=== PATIENT | female | born 1935 | race Caucasian/White ===

== ENCOUNTER 2019-03-09 11:07 | Observation (INO) | payer MEDICARE, MEDICAID ==
[~2019-03-09] VITALS: Ht 162.6 cm; Wt 83.6 kg
[2019-03-09 11:44] LABS: BASOPHILS # (AUTO) 0.1 X10'3 (0-0.2); BASOPHILS % (AUTO) 0.5 % (0-1); EOSINOPHILS # (AUTO) 0.3 X10'3 (0-0.9); EOSINOPHILS % (AUTO) 3.1 % (0-6); HEMATOCRIT 33.7 % (35.0-45.0); HEMOGLOBIN 11.5 g/dl (12.0-16.0); LYMPHOCYTES # (AUTO) 1.4 X10'3 (1.1-4.8); LYMPHOCYTES % (AUTO) 14.4 % (21-51); MEAN CORPUSCULAR HEMOGLOBIN 33.5 PG (27.0-31.0); MEAN CORPUSCULAR HGB CONC 34.1 g/dL (33.0-36.5); MEAN CORPUSCULAR VOLUME 98.3 FL (78-98); MONOCYTES # (AUTO) 0.6 X10'3 (0-0.9); MONOCYTES % (AUTO) 6.5 % (2-12); NEUTROPHILS # (AUTO) 7.3 X10'3 (1.8-7.7); NEUTROPHILS % (AUTO) 75.5 % (42-75); PLATELET COUNT 225 X10'3 (140-440); RED BLOOD COUNT 3.43 X10'6 (4.20-5.60); RED CELL DISTRIBUTION WIDTH 13.6 % (11.5-14.5); WHITE BLOOD COUNT 9.7 X10'3 (4.5-11.0)
[2019-03-09 12:03] LABS: PARTIAL THROMBOPLASTIN TIME 25 SECONDS (22-32)
[2019-03-09 12:08] LABS: ALANINE AMINOTRANSFERASE 24 U/L (12-78); ALBUMIN 3.1 G/DL (3.4-5.0); ALKALINE PHOSPHATASE 68 IU/L (46-116); ANION GAP 11 (8-16); ASPARTATE AMINO TRANSFERASE 11 U/L (10-37); BILIRUBIN,TOTAL 0.4 MG/DL (0.1-1.0); BLOOD UREA NITROGEN 29 MG/DL (7-18); BUN/CREATININE RATIO 20.1 (6.6-38.0); CALCIUM 8.7 MG/DL (8.5-10.1); CHLORIDE 105 MMOL/L (99-107); CREATININE 1.44 MG/DL (0.40-0.90); GLUCOSE 255 MG/DL (70-104); POTASSIUM 4.6 MMOL/L (3.5-5.1); SODIUM 142 MMOL/L (135-145); TOTAL CARBON DIOXIDE 25.8 MMOL/L (24-32); TOTAL PROTEIN 6.2 G/DL (6.4-8.2); eGFR 35 ML/MIN
--- NOTE | 2019-03-09 12:30 | NUR ---
assumed care of pt from Alfred SOTO, pt is resting quietly on family darryn at bedside
[2019-03-09] MEDS ORDERED: aspirin 81mg tab.chew PO ONE (13:20)
[2019-03-09] MEDS ORDERED: enoxaparin 100mg/ml syringe SUBCUT ONE (13:20)
[2019-03-09] MEDS ORDERED: nitroGLYCERIN 0.4mg/hour patch TD ONE (13:20)
[2019-03-09] MEDS ORDERED: ZOLP10TA PO (13:27)
[2019-03-09] MEDS ORDERED: ESCI20TA PO (13:27)
--- NOTE | 2019-03-09 13:35 | NUR ---
pt c/o rt sided chest pain 08/30, nonradiating, +nausea, +SOB (pt is on 313/12), family at bedside
--- NOTE | 2019-03-09 13:48 | NUR ---
gave pt ice water, luann well, no n/v
[2019-03-09] MEDS ORDERED: normal saline 1000ml 1,000 ML IV SCH (13:51)
[2019-03-09] MEDS ORDERED: ondansetron/PF 4mg/2ml inj IV ONE (13:55)
[2019-03-09] MEDS ORDERED: magnesium Cl slow-release 64mg tablet PO PRN (13:55)
[2019-03-09] MEDS ORDERED: ondansetron/PF 4mg/2ml inj IV PRN (13:55)
[2019-03-09] MEDS ORDERED: magnesium 2GM in 50ml NS 50 ML IV PRN (13:55)
[2019-03-09] MEDS ORDERED: acetaminophen 325mg tablet PO PRN (13:55)
[2019-03-09] MEDS ORDERED: potassium CL 10mEq/100ml bag 100 ML IV PRN ×2 (13:55)
[2019-03-09] MEDS ORDERED: potassium Cl 20 mEq SR tablet PO PRN ×2 (13:55)
[2019-03-09] MEDS ORDERED: magnesium 4gm in 100ml NS 100 ML IV PRN (13:55)
--- NOTE | 2019-03-09 13:55 | NUR ---
pt c/o nausea after PO med, Dr Burnham aware and gave verbal order for zofran 4mg IV x1 now
--- NOTE | 2019-03-09 14:13 | NUR ---
pt said rt sided chest pain is down to 2/10, family at bedside, medicated per order for nausea
[2019-03-09 14:20] LABS: OCCULT BLOOD STOOL NEGATIVE (Neg)
[2019-03-09] MEDS ORDERED: FLU VACC QS2019-20 36MOS UP/PF 60 MCG/0.5 ML SYRINGE IMVAC ONE (16:00)
[2019-03-09] MEDS ORDERED: ESCI20TA38 PO (16:05)
[2019-03-09] MEDS ORDERED: INSU300I SQ (16:05)
[2019-03-09] MEDS ORDERED: ZOLP5TAB8 PO (16:05)
[2019-03-09] MEDS ORDERED: FURO20TA4 PO (16:05)
[2019-03-09] MEDS ORDERED: UMEC1DIS PO (16:05)
[2019-03-09] MEDS ORDERED: AMLO5TAB16 PO (16:05)
[2019-03-09] MEDS ORDERED: HYDR25TA4 PO (16:05)
[2019-03-09] MEDS ORDERED: IPRA3AMP31 PO (16:06)
[2019-03-09] MEDS ORDERED: POLY1DRO2 OP (16:07)
[2019-03-09] MEDS ORDERED: CHOL100044 PO (16:07)
--- NOTE | 2019-03-09 16:35 | NUR ---
PT CONTINUES TO REST QUIETLY ON GURNEY, WAITING FOR BED ASSIGNMENT, FAMILY AT BEDSIDE
[2019-03-09] MEDS ORDERED: ipratropium/albuterol 3ml nebule IH PRN (16:55)
--- NOTE | 2019-03-09 17:55 | NUR ---
Patient going to MED RM 307. I have received report from BRITTANY Aquino and had the opportunity to ask questions and assume patient care.
[2019-03-09 18:00] VITALS: BP 141/66
[2019-03-09] MEDS ORDERED: aminophylline 250mg/10ml inj. IV PRN (18:05)
[2019-03-09] MEDS ORDERED: metoprolol tartrate 1mg/ml inj IV PRN (18:05)
[2019-03-09] MEDS ORDERED: regadenoson 0.4mg/5ml syringe IV ONE (18:05)
[2019-03-09] MEDS ORDERED: nitroGLYCERIN 0.4mg SUBLingual tab SL PRN (18:05)
--- NOTE | 2019-03-09 18:05 | NUR ---
Patient arrived to Room 307 via [facility] with monitor attached. Patient transfered from [facility] to hospital bed by herself. Pt family at bedside. all known belongings arrived with patient.
--- NOTE | 2019-03-09 18:05 | NUR ---
PAGER ID: [phone] MESSAGE: [phone] Bhavya Reese: do you want to continue lovenox inpatient? thx, [phone]
--- NOTE | 2019-03-09 18:15 | NUR ---
Patient in room MED 307. I have received report from BRITTANY Bernardo and had the opportunity to ask questions and assume patient care.
--- NOTE | 2019-03-09 18:44 | NUR ---
Problems reprioritized. Patient report given, questions answered & plan of care reviewed with BRITTANY Iqbal.
[2019-03-09] MEDS ORDERED: temazepam 15mg capsule PO PRN (21:00)
[2019-03-09 22:00] VITALS: BP 135/56
[2019-03-09] MEDS: zolpidem 5mg tablet PO SCH (22:24)
[2019-03-09] MEDS: amLODIPine 5mg tablet PO SCH (22:24)
[2019-03-10 02:00] VITALS: BP 141/53
[2019-03-10 06:00] VITALS: BP 164/61
--- NOTE | 2019-03-10 06:00 | NUR ---
Problems reprioritized. Patient report given, questions answered & plan of care reviewed with BRITTANY Hoffmann.
[2019-03-10 06:24] LABS: BASOPHILS # (AUTO) 0.1 X10'3 (0-0.2); BASOPHILS % (AUTO) 0.6 % (0-1); EOSINOPHILS # (AUTO) 0.4 X10'3 (0-0.9); EOSINOPHILS % (AUTO) 4.2 % (0-6); HEMATOCRIT 33.6 % (35.0-45.0); HEMOGLOBIN 11.4 g/dl (12.0-16.0); LYMPHOCYTES # (AUTO) 1.7 X10'3 (1.1-4.8); LYMPHOCYTES % (AUTO) 20.2 % (21-51); MEAN CORPUSCULAR HEMOGLOBIN 33.5 PG (27.0-31.0); MEAN CORPUSCULAR HGB CONC 33.9 g/dL (33.0-36.5); MEAN CORPUSCULAR VOLUME 98.9 FL (78-98); MEAN PLATELET VOLUME 9.1 FL (7.4-10.4); MONOCYTES # (AUTO) 0.6 X10'3 (0-0.9); MONOCYTES % (AUTO) 7.6 % (2-12); NEUTROPHILS # (AUTO) 5.6 X10'3 (1.8-7.7); NEUTROPHILS % (AUTO) 67.4 % (42-75); PLATELET COUNT 205 X10'3 (140-440); RED CELL DISTRIBUTION WIDTH 13.5 % (11.5-14.5); WHITE BLOOD COUNT 8.4 X10'3 (4.5-11.0)
--- NOTE | 2019-03-10 06:31 | NUR ---
Patient in room MED 307. I have received report from Abigail SOTO and had the opportunity to ask questions and assume patient care.
[2019-03-10 06:38] LABS: ANION GAP 6 (8-16); BLOOD UREA NITROGEN 28 MG/DL (7-18); BUN/CREATININE RATIO 21.5 (6.6-38.0); CALCIUM 8.7 MG/DL (8.5-10.1); CHLORIDE 104 MMOL/L (99-107); GLUCOSE 115 MG/DL (70-104); MAGNESIUM 1.8 MG/DL (1.5-2.4); POTASSIUM 4.4 MMOL/L (3.5-5.1); SODIUM 139 MMOL/L (135-145); TOTAL CARBON DIOXIDE 28.9 MMOL/L (24-32); eGFR 39 ML/MIN
[2019-03-10] MEDS ORDERED: ESCITALOPRAM OXALATE 5 MG TABLET PO SCH (08:00)
[2019-03-10] MEDS ORDERED: enoxaparin 100mg/ml syringe SUBCUT SCH (08:00)
[2019-03-10] MEDS ORDERED: polyvinyl alcohol ophthalmic drops 15ml bottle EACHEYE SCH (08:00)
[2019-03-10] MEDS ORDERED: K and/or MAG REPLACEMENT MC SCH (08:00)
[2019-03-10] MEDS: amLODIPine 5mg tablet PO SCH (09:33)
[2019-03-10] MEDS: pantoprazole 40mg Tablet.DR PO SCH (09:33)
[2019-03-10] MEDS: vitamin D (cholecalciferol) 1,000 unit tablet PO SCH (09:33)
[2019-03-10 11:00] VITALS: BP 163/65
[2019-03-10] MEDS ORDERED: enoxaparin 80mg/0.8ml syringe SUBCUT SCH (14:23)
--- NOTE | 2019-03-10 14:39 | NUR ---
DM consult: Pt with A1c 7.1 seen at bedside provided with written and verbal DM education with referral to outpatient DM class and RD contact information. Pt currently on heart healthy diet documented with 100% PO intake meeting nutrient needs. LBM 03/08. Pt initially requested power pudding for a BM however later called RD office and states she had a BM and no longer needs the pudding. No edema or wounds. Will continue to follow. Addendum: 03/10/19 at [address] Amended: Links added.
[2019-03-10 15:00] VITALS: BP 140/57
[2019-03-10 18:00] VITALS: BP 165/61
--- NOTE | 2019-03-10 18:34 | NUR ---
Problems reprioritized. Patient report given, questions answered & plan of care reviewed with nevaeh moyer.
[2019-03-10] MEDS: zolpidem 5mg tablet PO SCH (20:43)
[2019-03-10 22:00] VITALS: BP 150/56
--- NOTE | 2019-03-10 22:13 | NUR ---
Patient in room MED 307. I have received report from LILIAM SOTO and had the opportunity to ask questions and assume patient care. Addendum: 03/10/19 at 2216 by Joslyn Negron RN TIME WAS ACTUALLY 1800
[2019-03-11] VITALS (14 sets, daily range): BP systolic 120–155; BP diastolic 44–65
[2019-03-11 05:10] LABS: BASOPHILS % (AUTO) 0.5 % (0-1); EOSINOPHILS # (AUTO) 0.3 X10'3 (0-0.9); EOSINOPHILS % (AUTO) 4.3 % (0-6); HEMATOCRIT 31.9 % (35.0-45.0); HEMOGLOBIN 10.8 g/dl (12.0-16.0); LYMPHOCYTES # (AUTO) 1.8 X10'3 (1.1-4.8); LYMPHOCYTES % (AUTO) 23.3 % (21-51); MEAN CORPUSCULAR HEMOGLOBIN 33.4 PG (27.0-31.0); MEAN CORPUSCULAR HGB CONC 33.7 g/dL (33.0-36.5); MEAN CORPUSCULAR VOLUME 99.1 FL (78-98); MEAN PLATELET VOLUME 9.2 FL (7.4-10.4); MONOCYTES # (AUTO) 0.5 X10'3 (0-0.9); MONOCYTES % (AUTO) 6.5 % (2-12); NEUTROPHILS # (AUTO) 5.1 X10'3 (1.8-7.7); NEUTROPHILS % (AUTO) 65.4 % (42-75); PLATELET COUNT 195 X10'3 (140-440); RED BLOOD COUNT 3.22 X10'6 (4.20-5.60); RED CELL DISTRIBUTION WIDTH 13.7 % (11.5-14.5); WHITE BLOOD COUNT 7.9 X10'3 (4.5-11.0)
[2019-03-11 05:17] LABS: ALBUMIN 3.1 G/DL (3.4-5.0); ANION GAP 8 (8-16); BLOOD UREA NITROGEN 35 MG/DL (7-18); BUN/CREATININE RATIO 27.1 (6.6-38.0); CALCIUM 8.7 MG/DL (8.5-10.1); CHLORIDE 104 MMOL/L (99-107); CREATININE 1.29 MG/DL (0.40-0.90); GLUCOSE 155 MG/DL (70-104); MAGNESIUM 1.9 MG/DL (1.5-2.4); POTASSIUM 4.5 MMOL/L (3.5-5.1); SODIUM 140 MMOL/L (135-145); TOTAL CARBON DIOXIDE 27.6 MMOL/L (24-32); eGFR 40 ML/MIN
--- NOTE | 2019-03-11 05:58 | NUR ---
Preceptee documentation: I have reviewed and agree with all interventions, assessments performed and documented by BRITTANY Vasquez .
--- NOTE | 2019-03-11 06:09 | NUR ---
Problems reprioritized. Patient report given, questions answered & plan of care reviewed with LILIAM SOTO.
--- NOTE | 2019-03-11 06:22 | NUR ---
Patient in room MED 307. I have received report from nevaeh Collazo and had the opportunity to ask questions and assume patient care.
[2019-03-11] MEDS: vitamin D (cholecalciferol) 1,000 unit tablet PO SCH (08:30)
[2019-03-11] MEDS: pantoprazole 40mg Tablet.DR PO SCH (08:30)
[2019-03-11] MEDS ORDERED: aminophylline inj. 10 ML IV ONE (09:14)
[2019-03-11] MEDS ORDERED: regadenoson 0.4mg/5ml syringe IV PRN (09:15)
[2019-03-11] MEDS ORDERED: PANT-47 PO (11:45)
[2019-03-11] MEDS ORDERED: AMLO5TAB16 PO (11:48)
[2019-03-11] MEDS: amLODIPine 5mg tablet PO SCH (14:10)
== END 2019-03-11 14:50 | disposition home or self-care (01) ==
LOC: ER 11:07 → ED HOLD 14:06 → MED 3N 18:05
PROVIDERS: ADMIT Internal Medicine; ATTEND Internal Medicine
DX: R07.2 Precordial pain (principal); I12.9 Hypertensive chronic kidney disease with stage 1 through stage 4 chronic kidney disease, or unspecified chronic kidney disease; E11.22 Type 2 diabetes mellitus with diabetic chronic kidney disease; N18.9 Chronic kidney disease, unspecified; F32.9 Major depressive disorder, single episode, unspecified; N17.9 Acute kidney failure, unspecified; G47.00 Insomnia, unspecified; F17.210 Nicotine dependence, cigarettes, uncomplicated; Z79.4 Long term (current) use of insulin; Z79.899 Other long term (current) drug therapy
CPT/HCPCS: 36415; 71045; 76700; 78452; 80048; 80053; 82272; 82948; 83036; 83735; 84484; 85025; 85610; 85730; 87081; 93005; 93017; 93306; 94760; 96372; 96374; 96375; 99284; A9500; G0378; J0280; J2405; J2785; Q2037; J1650